=== PATIENT | male | born 1980 | race Caucasian/White ===

== ENCOUNTER 2018-04-26 10:57 | Outpatient (CLI) | payer MEDICAID, SELFPAY ==
--- NOTE | 2018-04-23 09:35 | DI.RAD_ITS ---
SYMPTOMS/DIAGNOSIS: COUGH, WHEEZE, HX WALKING PNEUMONIA, R05 PA AND LATERAL CHEST: The cardiac and mediastinal contours have a normal appearance. The lungs are well inflated and clear. No infiltrate or effusion is seen. IMPRESSION: Negative chest x-ray.
== END 2018-04-26 11:17 ==
PROVIDERS: PCP Nurse Practitioner Family; Visit Provider Student in an Organized Health Care Education/Training Program
DX: R05 Cough (principal); R06.2 Wheezing
CPT/HCPCS: 71046

== ENCOUNTER 2020-04-05 01:20 | Outpatient (CLI) | payer MEDICAID, SELFPAY ==
[2020-04-05 09:59] LABS: ALT 41 U/L (16-63); AST 22 U/L (15-37); Albumin 3.9 g/dL (3.4-5.0); Alkaline Phosphatase 74 U/L (46-116); Anion Gap 6.4 mmol/L (3-11); BUN 24 mg/dL (7-18); CO2 31.6 mmol/L (21.0-32.0); CREATININE 1.09 mg/dL (0.70-1.30); Calcium 9.1 mg/dL (8.5-10.1); Chloride 101 mmol/L (98-107); Glucose 88 mg/dL (74-106); Magnesium 2.2 mg/dL (1.8-2.4); Sodium 139 mmol/L (136-145); TSH (W/Ref FT4) 1.21 uIU/mL (0.36-3.74); Total Protein 7.5 g/dL (6.4-8.2)
== END 2020-04-05 01:40 ==
PROVIDERS: PCP Nurse Practitioner Family; Visit Provider Family Medicine
DX: R25.3 Fasciculation (principal)
CPT/HCPCS: 36415; 80053; 83735; 84443

== ENCOUNTER 2021-09-06 15:16 | Outpatient (CLI) | payer MEDICAID, SELFPAY ==
--- NOTE | 2021-09-06 14:36 | DI.RAD_ITS ---
Exam(s) XR FOOT LT COMPLETE EXAM: XR FOOT LT COMPLETE CLINICAL HISTORY: heel pain not better ?bony abn ?spur M79.672 PAIN LT FOOT G89.29 CHRONIC. TECHNIQUE: 2D digital imaging was performed. COMPARISON: No exams were available for comparison FINDINGS: BONES: No acute fracture is present. No bony destructive lesion is seen. Minimal spurring is seen at the Achilles insertion. There is a small plantar calcaneal spur. JOINTS: No dislocation present. No significant degenerative changes SOFT TISSUE: Normal. IMPRESSION: Small heel spurs. DATA REPOSITORY: RADIATION DOSE DELIVERED:
== END 2021-09-06 15:36 ==
PROVIDERS: PCP Nurse Practitioner Family; Visit Provider Nurse Practitioner Family
DX: M79.672 Pain in left foot (principal); M77.32 Calcaneal spur, left foot; G89.29 Other chronic pain
CPT/HCPCS: 73630

== ENCOUNTER 2025-05-24 02:16 | Outpatient (CLI) | payer MEDICAID, SELFPAY ==
--- NOTE | 2025-05-24 06:30 | DI.CT_ITS ---
Exam(s) CT SINUS WO EXAM: CT SINUS WO CLINICAL HISTORY: chronic nasal congestion,deviated nasal septum,vasomotor rhinitis,snoring. TECHNIQUE: Imaging Protocol: Axial computed tomography images with coronal and sagittal reformatted images were created and reviewed. No IV Contrast COMPARISON: No exams were available for comparison FINDINGS: MAXILLARY SINUSES: There is some mucosal thickening evident in floor of the left maxillary sinus, not associated with fluid level nor bone dehiscence. There is no evidence of bone dehiscence. OSTIOMEATAL UNITS: Appears somewhat stenotic bilaterally but without opacification. ETHMOIDAL AIR CELLS: Clear. SPHENOID SINUSES: There is partial opacification the right side by what appears to be a post inflammatory retention cyst measuring 2 cm wide by 1 cm AP. No sys seated fluid level. FRONTAL SINUSES: Well aerated. No mucosal thickening nor fluid levels. NASAL SEPTUM AND TURBINATES:Nasal septum is deviated towards the left side and there is left-sided nasal septal spur. There is no evidence of travis bullosa of the middle turbinates.. IMPRESSION: 1. Mild mucosal thickening noted in the floor of the left maxillary sinus. 2. There is a post inflammatory retention cyst in the right-side of the sphenoid sinus which measures approximately 2 cm wide by 1 cm. The nasal septum is deviated towards the left side and there is a left-sided nasal septal spur. RADIATION DOSE DELIVERED: 104mGy.cm Total DLP DATA REPOSITORY: All CT scans at this facility are submitted to the National Radiology Data Registry (NRDR) Dose Index Registry (DIR) with the [employer] ([employer]). RADIATION OPTIMIZATION: All CT scans at this facility use at least one of these dose optimization techniques: automated exposure control; mA and/or kV adjustment per patient size (includes targeted exams where dose is matched to clinical indication); or iterative reconstruction.
== END 2025-05-24 02:36 ==
LOC: DI 02:16
PROVIDERS: PCP Nurse Practitioner Family; Visit Provider Registered Nurse Maternal Newborn
DX: J34.2 Deviated nasal septum (principal)
CPT/HCPCS: 70486